=== PATIENT | female | born 1940 | race Caucasian/White ===

== ENCOUNTER 2017-10-13 11:52 | Observation (INO) ==
[2017-10-13] MEDS ORDERED: ACETAMINOPHEN 325 MG TABLET PO PRN (14:59)
[2017-10-13] MEDS ORDERED: oxyCODONE/APAP 5/325MG TABLET PO PRN (14:59)
[2017-10-13] MEDS ORDERED: ONDANSETRON 4 MG/2 ML VIAL IV PRN (14:59)
[2017-10-13] MEDS ORDERED: NALOXONE HCL 0.4 MG/ML VIAL IV PRN (14:59)
[2017-10-13] MEDS ORDERED: LORazepam 1 MG TABLET PO PRN (15:01)
[2017-10-13] MEDS ORDERED: KETAMINE 10 MG/ML ML IV PRN ×2 (15:05→15:42)
--- NOTE | 2017-10-13 15:11 | Internal Med History&Physical ---
Medical - H&P: HPI Patient information: Note initiated : 10/13/17 at 3:02 pm Service Date, if different from initiated Date: [] Patient: Pierce Perez 77 y/o F admitted on 10/13/17 for GI Bleed. Chief Complaint: [] History of present illness: Ms. Perez is a 77 year old Female with h/o hemochromatosis, collagenous coliitis, arthritis, on nsaids ? recently started on celebrex by her pcp for pain, presented to an outside facility with weakness, fatigue, shortness of breath on exertion, black stools x 4-5 days and hematemesis x 1 day SHe had hb of 7.4 on presentation, fob positive stool, the patient received 2 units of blood, and this improved her hb to 10-11, which has remained stable x 2 , she feels better is hemodynamically stable, but still has dark stools. The patient needed EGD Scopy and since Dr Casas is her GI she was transferred to [facility] for further management. Dr Casas is not solution engineer, but has accepted the responsibility to be available 24 / should the need arise as we do not have back up GI in the hospital. The patient feels weak and tired, but beyond this does not have any complaints She was recently diagnosed with Cdiff colitis and was treated for same, recurrent testing was neg for cdiff, then she tested positive for antigen? the patient was not symptomatic, during this time as per the patient, I am not sure if there is any indication to recheck for Cdiff clearance as its difficult to interpret these tests kamilla on formed stools. She was on oral vancomycin by the outside provider, which I will not continue. Pt has black stools, no e/o diarrhea no All systems: reviewed and no additional remarkable complaints except as stated ( as per hPI rest neg) Medical - H&P: PMH Medical history: Medical History Dyspnea and respiratory abnormalities (Acute) COPD (chronic obstructive pulmonary disease) (Acute) Volume excess (Acute) Hemochromatosis (Acute) Collagenous colitis (Acute) Tobacco abuse (Acute) Hypothyroid (Acute) Depression (Acute) RLS (restless legs syndrome) (Acute) B12 deficiency (Acute) Surgical history: Past Surgical History Hx of total knee arthroplasty (Acute) Pertinent family history: father with blood cancer, hematochromatosis 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 no recreational drug use, uses thc oil on the leg Medical - H&P: Meds Home Medications Medication Instructions Recorded Confirmed Type Acetaminophen [Tylenol] 500 mg PO BIDP PRN 10/13/17 10/13/17 History Aspirin [Lite Coat Aspirin] 650 mg PO TIDP PRN 10/13/17 10/13/17 History Budesonide [Budesonide EC] 9 mg PO DAILY 10/13/17 10/13/17 History Ibuprofen [Advil] 200 mg PO DAILYP PRN 10/13/17 10/13/17 History LORazepam [Ativan] 1 mg PO BIDP PRN 10/13/17 10/13/17 History Levothyroxine [Synthroid] 88 mcg PO QAMAC 10/13/17 10/13/17 History Methyl Salicylate/Menth/Camph 1 each TP BIDP PRN 10/13/17 10/13/17 History [Salonpas Patch] PARoxetine [Paxil] 20 mg PO BID 10/13/17 10/13/17 History rOPINIRole HCL [Requip] 0.75 mg PO BID 10/13/17 10/13/17 History Allergies Allergy/AdvReac Type Severity Reaction Status Date / Time Warfarin Allergy Severe Swelling Verified 07/31/15 14:29 adhesive tape AdvReac Intermediate Blister Verified 07/31/15 14:15 scallops AdvReac Mild Vomiting Verified 07/31/15 14:17 Medical - H&P: Exam - Constitutional Vitals: Temp Pulse Resp BP Pulse Ox 98.8 F 80 16 155/62 100 10/13/17 13:52 10/13/17 13:52 10/13/17 13:52 10/13/17 13:52 10/13/17 13:52 Exam: GENERAL: The patient is a well-developed, well-nourished in no apparent distress. Is alert and oriented x3. VITAL SIGNS: Reviewed and as noted elsewhere. HEENT: Head is normocephalic and atraumatic. Extraocular muscles are intact. Pupils are equal, round, and reactive to light. Nares appeared normal. Mouth appears any without lesions. Mucous membranes are moist. NECK: Normal to inspection, Supple, No lymphadenopathy or thyromegaly. LUNGS: Air entry equal on both sides, no wheezing, crackles or rhonchi noted. No accessory muscles of respiration HEART: Regular rate and rhythm normal, S1 and S2 heard, no Gallop, S3 or Rub Noted, No Gross murmur heard. ABDOMEN: Soft, nontender, and nondistended. Positive bowel sounds. No hepatosplenomegaly was noted. EXTREMITIES: No cyanosis, clubbing, rash, lesions or edema. NEUROLOGIC: Cranial nerves II through XII are grossly intact. Motor and Sensory System Grossly Intact PSYCHIATRIC: Normal affect, Normal Mood. Appropriate Behavior. SKIN: No ulceration or wounds noted, No jaundice, No rash noted. Medical - H&P: Reslt - Labs Labs: labs reviewed done at outside facility Medical - H&P: A/P - Narrative A/P Narrative: a/P Acute GI bleed, upper gi bleed- given hemaememsis, morro, use of nsaids/ asa its likely she has upper gib, paln for IV ppi bid, gi consulted plan for egd Hemochromatosis- no iron phlebotomy x 3 yrs, not sure why, advised outpatient follow up Arthritis- due to hemochromatosis? prn pain meds oxycodone for now Hypothyroidism- continue levothyroxine Depression/ anxiety- chr issue, on paroxetine continue same DVT scd Full code NPO diet
[2017-10-13] MEDS ORDERED: PROPOFOL 200 MG/20 ML VIAL IV SCH ×2 (15:15→15:45)
[2017-10-13] MEDS ORDERED: MIDAZOLAM 2 MG/2 ML VIAL IV SCH ×2 (15:15→15:45)
[2017-10-13] MEDS ORDERED: PROPOFOL 20 ML IV ONE (15:45)
[2017-10-13] MEDS ORDERED: MIDAZOLAM 2 MG/2 ML VIAL ONE (15:45)
[2017-10-13 15:47] LABS: Basophils # (Auto) 0.1 K/mcL (0.0-0.3); Basophils % (Auto) 0.5 % (0.0-2.0); Eosinophils # (Auto) 0.1 K/mcL (0.0-0.7); Eosinophils % (Auto) 1.2 % (0.0-7.0); Granulocytes % (Auto) 79.8 % (38.0-78.0); Lymphocytes # (Auto) 1.3 K/mcL (1.5-4.8); Lymphocytes % (Auto) 12.7 % (15.5-49.0); Mean Cell Volume 93.8 fL (80.0-100.0); Mean Corpuscular HGB Conc 33.6 g/dL (31.0-36.0); Mean Corpuscular Hemoglobin 31.5 pg (26.0-34.0); Monocytes # (Auto) 0.6 K/mcL (0.1-0.9); Monocytes % (Auto) 5.8 % (1.0-12.0); Platelet Count 347 K/mcL (140-440); Red Cell Distribution Width 15.5 % (11.5-14.5)
[2017-10-13] MEDS ORDERED: EPINEPHrine 1 MG/ML AMPUL IJ ONE (16:00)
[2017-10-13 16:09] LABS: ALT/SGPT 20 U/l (0-40); Albumin 3.8 gm/dL (3.2-5.2); Albumin/Globulin Ratio 1.7 (1.0-2.3); Alkaline Phosphatase 40 U/L (39-117); Blood Urea Nitrogen 16 mg/dl (8-23)
--- NOTE | 2017-10-13 16:23 | Internal Medicine Consult Note ---
Medical - CN: [facility] - Data of Consult Patient: known to practice within the last 3 years Consult date: 10/13/17 Requesting Physician: Aida Angel Primary Care Provider: Jenna Kolb Family Provider: Jenna Kolb - Consult Narrative Reason for consult: Upper GI bleed History of present illness: Ms. Perez is a 77 year old F whom we know well, having seen her in the past for collagenous colitis, who is admitted for upper GI bleeding. She was started on Celebrex last week for hip pain and had been taking ASA intermittently in conjunction with Celebrex. Two days ago, she developed hematemesis, having coffee ground emesis with clots that spattered on the wall. She also had melena. She was admitted to [facility], started on Protonix drip , and transfused two units of packed red cells. She continued to have some melena, but no further episodes of hematemesis. Her hemoglobin shannon from 7 to 10 post transfusion and has stabilized. She is admitted for urgent EGD today. She has been hemodynamically stable. She continues to have diarrhea and was recently diagnosed with c. difficile in August, treated with a 2 week course of vancomycin. Repeat c. difficile assay was negative following that course of treatment. However, given her chronic diarrhea and hx of c. difficile, repeat assay was performed when she was admitted to [facility] and she was found to be c. difficile antigen positive, toxin negative, and given vancomycin as a precaution. CC: Aida Graham Medical - CN: [facility] Medical history: Collagenous colitis, c. difficile, hypothyroidism, RLS, osteoarthritis, COPD Surgical history: cataract, tonsillectomy, hip and knee replacement, basal cell carcinoma excision , hysterectomy Functional capacity: independent ambulation Medical - CN: Meds Home Medications Medication Instructions Recorded Confirmed Type Acetaminophen [Tylenol] 500 mg PO BIDP PRN 10/13/17 10/13/17 History Aspirin [Lite Coat Aspirin] 650 mg PO TIDP PRN 10/13/17 10/13/17 History Budesonide [Budesonide EC] 9 mg PO DAILY 10/13/17 10/13/17 History Ibuprofen [Advil] 200 mg PO DAILYP PRN 10/13/17 10/13/17 History LORazepam [Ativan] 1 mg PO BIDP PRN 10/13/17 10/13/17 History Levothyroxine [Synthroid] 88 mcg PO QAMAC 10/13/17 10/13/17 History Methyl Salicylate/Menth/Camph 1 each TP BIDP PRN 10/13/17 10/13/17 History [Salonpas Patch] PARoxetine [Paxil] 20 mg PO BID 10/13/17 10/13/17 History rOPINIRole HCL [Requip] 0.75 mg PO BID 10/13/17 10/13/17 History Allergies Allergy/AdvReac Type Severity Reaction Status Date / Time Warfarin Allergy Severe Swelling Verified 10/13/17 15:42 adhesive tape AdvReac Intermediate Blister Verified 10/13/17 15:42 scallops AdvReac Mild Vomiting Verified 10/13/17 15:42 Medical - CN: Exam - Constitutional Vitals: Temp Pulse Resp BP Pulse Ox 98.8 F 89 17 174/77 100 10/13/17 13:52 10/13/17 16:13 10/13/17 16:13 10/13/17 16:13 10/13/17 16:13 General appearance: no acute distress, thin Exam: pale - Head Head exam: Present: atraumatic, normal inspection - Neck Neck exam: Present: normal inspection. Absent: lymphadenopathy, thyromegaly Medical - CN: Result - Labs CBC & Chem 7: 10/13/17 15:18 10/13/17 15:18 Labs: Short CBC 10/13/17 Range/Units 15:18 WBC 9.9 (4.5-11.0) K/mcL Hgb 11.0 L (12.0-15.0) g/dL Hct 32.8 L (36.0-48.0) % Plt Count 347 (140-440) K/mcL BMP 10/13/17 15:18 Sodium 137 Potassium 3.9 Chloride 104 Carbon Dioxide 22 BUN 16 Creatinine 0.7 Glucose 103 Calcium 9.0 Liver Function 10/13/17 Range/Units 15:18 Total Bilirubin 0.8 (0.0-1.0) mg/dL AST 17 (0-37) U/l ALT 20 (0-40) U/l Alkaline Phosphatase 40 (39-117) U/L Albumin 3.8 (3.2-5.2) gm/dL Medical - CN: A/P (1) GI bleed due to NSAIDs Status: Acute Assessment and plan: EGD was undertaken (see report), which revealed a gastric ulcer, likely due to Celebrex and ASA. There was no visible vessel so risk of rebleeding is less than 1 in 500-1000. This was discussed with patient's . Should she have recurrent melena or hematemesis, she should return to hospital. She should avoid ASA/NSAIDs completely and will be discharged home on high dose PPI ( pantoprazole 40mg BID #60, 2 refills called to [facility] in [place]). Should NSAID/ASA be required in the future, they should be given with PPI and misoprostol (although this will likely exacerbate her diarrhea complaints). She will require repeat EGD again in 6 weeks. Follow up as outpatient on October 19, 2017 at 10:15AM at [facility] [address] [place] [address]. (2) C. difficile diarrhea Status: Acute Assessment and plan: Vancomycin 250mg PO QID x 5 days called to [facility] in [place], [place]. Continue budesonide. A total of 45 minutes was spent in counseling and coordination of care today including transfer from [facility] to [facility].
--- NOTE | 2017-10-13 16:37 | Discharge Summary ---
Medical - DS: Prov Patient information: Note initiated : 10/13/17 at 4:28 pm Service Date, if different from initiated Date: [] Patient: Pierce Perez 77 y/o F admitted on 10/13/17 for GI Bleed. Chief Complaint: [] Date of admission: 10/13/17 13:52 Discharge date: 10/13/17 Primary care physician: Jenna Kolb Admitting clinician: Aida Graham Consults: 10/13/17 15:02 Consult to Physician [CONS] Routine Comment: Consulting Provider: Nellie Padilla Reason For Exam: Physician to Consult Discharging clinician: Aida Graham Medical - DS: Meds - Discharge Medications Active and Home Medications: Home Medications Acetaminophen [Tylenol] 500 mg PO BIDP PRN 10/13/17 [History Confirmed 10/13/17 Last Taken 10/11/17] Aspirin [Lite Coat Aspirin] 650 mg PO TIDP PRN 10/13/17 [History Confirmed 10/13 Last Taken 10/06/17] Budesonide [Budesonide EC] 9 mg PO DAILY 10/13/17 [History Confirmed 10/13/17 Last Taken 10/13/17] Ibuprofen [Advil] 200 mg PO DAILYP PRN 10/13/17 [History Confirmed 10/13/17 Last Taken 10/11/17] LORazepam [Ativan] 1 mg PO BIDP PRN 10/13/17 [History Confirmed 10/13/17 Last Taken 10/13/17] Levothyroxine [Synthroid] 88 mcg PO QAMAC 10/13/17 [History Confirmed 10/13/17 Last Taken 10/13/17] Methyl Salicylate/Menth/Camph [Salonpas Patch] 1 each TP BIDP PRN 10/13/17 [ History Confirmed 10/13/17 Last Taken 10/11/17] PARoxetine [Paxil] 20 mg PO BID 10/13/17 [History Confirmed 10/13/17 Last Taken 10/13/17] rOPINIRole HCL [Requip] 0.75 mg PO BID 10/13/17 [History Confirmed 10/13/17 Last Taken 10/13/17] Medical - DS: Hosp Hospital course: Ms. Perez is a 77 year old Female with h/o hemochromatosis, collagenous coliitis, arthritis, on nsaids ? recently started on celebrex by her pcp for pain, presented to an outside facility with weakness, fatigue, shortness of breath on exertion, black stools x 4-5 days and hematemesis x 1 day SHe had hb of 7.4 on presentation, fob positive stool, the patient received 2 units of blood, and this improved her hb to 10-11, which has remained stable x 2 , she feels better is hemodynamically stable, but still has dark stools. The patient needed EGD Scopy and since Dr Casas is her GI she was transferred to [facility] for further management. The patient feels weak and tired, but beyond this does not have any complaints She was recently diagnosed with Cdiff colitis and was treated for same, recurrent testing was neg for cdiff, then she tested positive for antigen? The patient had an EGD done which showed some areas of blood, but no active bleeding vessel. The patient was advised to be discharged from the hospital by GI. The patient will be discharged home with , pt to continue po vancomycin and pantoprazole as per GI reccommendations, medicine called to pharmcy by GI team. Discharge diagnosis: Upper GI bleed - Time Spent with Patient Total time spent providing and/or coordinating discharge services: Less than 30 minutes Medical - DS: Exam - Constitutional Vitals: Vital Signs Temp Pulse Pulse Resp BP BP Pulse Ox 10/13/17 16:13 89 17 174/77 100 10/13/17 15:57 85 17 166/70 100 10/13/17 15:45 80 16 169/85 100 10/13/17 13:52 98.8 F 80 16 155/62 100 Intake and Output 10/13/17 10/13/17 10/13/17 05:59 13:59 21:59 Other: Weight 115 lb Patient Weight 10/14/17 05:59 Weight 115 lb Additional comments: Constitutional; Afebrile, cooperative, alert, not in distress. Eyes- No icterus, , No periorbital swelling Ears- Ext ear normal, hearing normal to conversation. Neck- Midline trachea, supple Respiratory system: Air Entry equal on both sides, No crackles or wheezing, no rhonchi. CVS- Rate rhythm regular, S1,S2 heard, no gallop, no rub. Abdomen- Soft nontender abdomen, no organomegaly, no tenderness, no guarding or rigidity, HEAD OF CONSERVATION- AOOx3, moving all extremities, no gross focal deficit noted. Medical - DS: Data Labs on day of discharge: Labs from last 24 hours 10/13/17 10/13/17 15:18 15:18 WBC 9.9 RBC 3.50 L Hgb 11.0 L Hct 32.8 L MCV 93.8 MCH 31.5 MCHC 33.6 RDW 15.5 H Plt Count 347 MPV 6.9 L Gran % 79.8 H Lymph % (Auto) 12.7 L [place] % (Auto) 5.8 Eos % (Auto) 1.2 Baso % (Auto) 0.5 Gran # 7.9 Lymph # (Auto) 1.3 L [place] # (Auto) 0.6 Eos # (Auto) 0.1 Baso # (Auto) 0.1 Sodium 137 Potassium 3.9 Chloride 104 Carbon Dioxide 22 Anion Gap 11.0 BUN 16 Creatinine 0.7 GFR Calculation 85 Glucose 103 Calcium 9.0 Total Bilirubin 0.8 AST 17 ALT 20 Alkaline Phosphatase 40 Total Protein 6.0 Albumin 3.8 Globulin 2.2 Albumin/Globulin Ratio 1.7 Medical - DS: A/P - Patient/Caregiver Discharge Instructions Activity: increase activity as tolerated Diet: Regular Diet Additional Instructions: Please do not take aspirin/ nsaids/ ibuprofen/ celebrex/ Follow up with your PCP in 1-2 weeks, discuss pain management for your hip with your PCP Follow up with GI as per their reccommendations, Go to the ER if you notice blood in the stools or vomit blood again. Take medications as prescribed by GI I have not made any changes to your home medication list. - Follow up Plan Disposition: Home, Self-Care Prognosis: Fair Rehab Potential: Fair I certify that the patient requires SNF services: No Overall status at discharge: patient is back to baseline
[2017-10-13] MEDS ORDERED: PANTOPRAZOLE 40 MG VIAL IV SCH (17:00)
--- NOTE | 2017-10-13 17:20 | EGD Procedure Note ---
EGD Procedure Notes - Procedure Information Patient information: Note initiated : 10/13/17 at 5:17 pm Service Date: 10/13/17 Patient: Pierce Perez 77 y/o F admitted on 10/13/17 for GI Bleed. Pre-op diagnosis general: Melena. Hematemesis. Post-Op Diagnosis general: Gastric ulcer. Hiatal hernia with Bulmaro's ulcers. Procedure Narrative: The procedure, alternatives and risks were discussed with the patient and the patient's questions were answered. With endoscopist-administered intravenous sedation, the Olympus video endoscope was introduced into the esophagus. The esophagus, stomach, and duodenum were examined sequentially. There is no esophagitis. A sliding hiatal hernia with several nonbleeding Bulmaro's ulcers were seen. There was a large saddle-shaped pre-pyloric gastric ulcer with a small rios red spot. There was no visible vessel. The ulcer was injected with epinephrine and cauterized with heater probe. It is benign in appearance. Biopsies were not taken of the ulcer due to her history of recent bleeding. Antral biopsy was obtained for GEOVANI test. The scope was withdrawn. Assessment: Gastric ulcer. Hiatal hernia with Bulmaro's ulcers. Likelihood of rebleed is extremely unlikely. She will be discharged home on high dose PPI. She should abstain completely from ASA/NSAIDS/Celebrex. She will require EGD again in 6 weeks.
[2017-10-13] MEDS ORDERED: rOPINIRole 0.25 MG TABLET PO SCH (21:00)
[2017-10-13] MEDS ORDERED: PARoxetine 20 MG TABLET PO SCH (21:00)
[2017-10-13] MEDS ORDERED: 0.9 % SODIUM CHLORIDE 10 ML SYRINGE IV SCH (22:00)
[2017-10-14] MEDS ORDERED: LEVOTHYROXINE 88 MCG TABLET PO SCH (07:30)
[2017-10-14] MEDS ORDERED: BUDESONIDE 3 MG CAP.XL.24H PO SCH (09:00)
== END 2017-10-13 18:00 | disposition home or self-care (01) ==
LOC: ICU
PROVIDERS: ADMIT Internal Medicine; ATTEND Internal Medicine